=== PATIENT | female | born 1995 | race African-American/Black ===

== ENCOUNTER 2021-10-21 12:21 | Emergency (ER) | payer OTHER ==
[2021-10-21 13:15] LABS: #Eosinphils 0.2 10x3/uL (0.0-0.5); #Monocytes 0.3 10x3/uL (0.0-1.1); #Neutrophils 5.9 10x3/uL (1.5-8.4); %Basophils 0.4 % (0.0-2.0); %Eosinophils 2.1 % (0.0-6.0); %Lymphocytes 14.4 % (18.0-47.0); %Monocytes 4.4 % (0.0-10.0); %Neutrophils 78.4 % (40.0-75.0); Hemoglobin 9.7 g/dL (12.0-15.5); Mean Corpuscular HGB CONC 32.1 g/dL (32.0-36.0); Mean Corpuscular Hemoglobin 24.7 pg (27.0-33.0); Mean Corpuscular Volume 76.8 fl (81.6-98.3); Mean Platelet Volume 10.3 fl (7.4-10.4); Platelet Count 277 10x3/uL (150-450); Red Blood Cell (RBC) Count 3.93 10x6/uL (3.90-5.03); White Blood Cell (WBC) Count 7.6 10x3/uL (3.5-10.5)
[2021-10-21 13:25] LABS: ALT (SGPT) 9 U/L (8-55); AST (SGOT) 13 U/L (5-34); Albumin 4.1 g/dL (3.5-5.0); Alkaline Phosphatase 61 U/L (40-110); Anion Gap 12 mmol/L (10-20); BUN (Urea Nitrogen) 6 mg/dL (7.0-18.7); Bilirubin, Total 0.5 mg/dL (0.2-1.2); Calc. Creatinine Clearance 0 mL/min (70-130); Calcium 9.5 mg/dL (7.8-10.44); Carbon Dioxide 23 mmol/L (22-29); Chloride 104 mmol/L (98-107); Globulin 3.9 g/dL (2.4-3.5); Glucose 107 mg/dL (70-105); Sodium 135 mmol/L (136-145)
[2021-10-21 13:38] LABS: Bilirubin Neg (Negative); Blood, Urine Negative (Negative); Clarity Clear (Clear); Glucose, Urine (Dipstick) Normal (Negative); Ketone, Urine Negative (Negative); Leukocyte Negative (Negative); Nitrite Negative (Negative); Protein, Urine (Dipstick) Negative (Neg-Trace); Urobilinogen Normal mg/dL (Less than 2)
[2021-10-21] MEDS ORDERED: Ondansetron PF 4 MG/2 ML Vial ONE (14:13)
== END 2021-10-21 15:43 | disposition home or self-care (01) ==
LOC: CSHERS 12:21
DX: O21.0 Mild hyperemesis gravidarum (principal); O99.011 Anemia complicating pregnancy, first trimester; D64.9 Anemia, unspecified; Z3A.01 Less than 8 weeks gestation of pregnancy
CPT/HCPCS: 80053; 81003; 84702; 85025; 96361; 96374; J2405

== ENCOUNTER 2022-04-25 20:30 | Day surgery (SDC) | payer OTHER ==
[2022-04-25 21:20] VITALS: BMI 29.5
[2022-04-25] MEDS ORDERED: hydrALAZINE 20 MG/ML VIAL SLOW IVP PRN (22:59)
[2022-04-25] MEDS ORDERED: Methocarbamol 500 MG TAB PO PRN (23:08)
[2022-04-25] MEDS ORDERED: Acetaminophen 325 MG TAB PO PRN (23:12)
[2022-04-25] MEDS ORDERED: Azithromycin 250 MG TAB PO SCH (23:15)
[2022-04-25] MEDS ORDERED: cefTRIAXone\\ROCEPHIN 500 MG VIAL IM SCH (23:30)
[2022-04-25 23:40] LABS: Bilirubin Neg (Negative); Blood, Urine 150 (Negative); Clarity Slightly Cloudy (Clear); Glucose, Urine (Dipstick) Normal (Negative); Ketone, Urine Negative (Negative); Leukocyte Negative (Negative); Nitrite Negative (Negative); Protein, Urine (Dipstick) Negative (Neg-Trace)
[2022-04-25 23:54] LABS: RBC/HPF 21-50 HPF (0-3); Squamous Epithelial 0-3 HPF (0-3); WBC/HPF 0-3 HPF (0-3)
[2022-04-25 23:55] LABS: Bacteria/HPF None Seen HPF (None Seen)
[2022-04-26 00:03] LABS: Amphetamine Not Detected (NotDetected); Barbiturates Screen Not Detected (NotDetected); Benzodiazepine Screen Not Detected (NotDetected); Cocaine Metabolite Screen Not Detected (NotDetected); Methadone Not Detected (NotDetected); Methamphetamine Not Detected (NotDetected); Opiate Screen Detected (NotDetected); Oxycodone Screen Not Detected (NotDetected); Phencyclidine (PCP) Not Detected (NotDetected); THC/Cannabinoid Screen Not Detected (NotDetected); Tricyclic Screen Not Detected (NotDetected)
[2022-04-26] MEDS ORDERED: Lidocaine 1% (PF) 30 ML VIAL ONE (00:49)
[2022-04-26 01:23] LABS: Hemoglobin 8.5 g/dL (12.0-15.5); Mean Corpuscular HGB CONC 31.6 g/dL (32.0-36.0); Mean Corpuscular Hemoglobin 26.3 pg (27.0-33.0); Mean Corpuscular Volume 83.3 fl (81.6-98.3); Mean Platelet Volume 10.8 fl (7.4-10.4); Platelet Count 213 10x3/uL (150-450); RBC Distribution Width 13.9 % (11.5-14.5); Red Blood Cell (RBC) Count 3.23 10x6/uL (3.90-5.03); White Blood Cell (WBC) Count 8.6 10x3/uL (3.5-10.5)
[2022-04-26 01:36] LABS: ALT (SGPT) 7 U/L (8-55); AST (SGOT) 10 U/L (5-34); Albumin 3.3 g/dL (3.5-5.0); Alkaline Phosphatase 123 U/L (40-110); Anion Gap 12 mmol/L (10-20); BUN (Urea Nitrogen) 10 mg/dL (7.0-18.7); Bilirubin, Total 0.3 mg/dL (0.2-1.2); Calc. Creatinine Clearance 188 mL/min (70-130); Calcium 8.8 mg/dL (7.8-10.44); Carbon Dioxide 20 mmol/L (22-29); Chloride 108 mmol/L (98-107); Estimated GFR 125; Globulin 3.4 g/dL (2.4-3.5); Glucose 89 mg/dL (70-105); Potassium 3.4 mmol/L (3.5-5.1); Protein, Total 6.7 g/dL (6.0-8.3); Sodium 137 mmol/L (136-145)
[2022-04-26 02:02] LABS: HBSAg Index 0.12 S/CO (0-0.99); HIV (1/2) Antibody/Antigen Non-Reactive (NonReactive); HIV 1/2 INDEX 0.05 S/CO (<1.00); Hep B Surf Ag Non-Reactive S/CO (NonReactive)
[2022-04-26 02:58] LABS: Syphilis Antibody Index 23.98 S/CO (<1.00 Non-Reactive)
[2022-04-26 03:12] LABS: Syphilis Antibody REACTIVE (Nonreactive)
[2022-04-26] MEDS ORDERED: Bicillin LA 2.4 MILL.UNITS/4 ML SYRINGE IM SCH (04:30)
[2022-04-26] MEDS ORDERED: Acyclovir 400 mg Tablet PO SCH ×2 (05:00→09:00)
[2022-04-26] MEDS ORDERED: Acetaminophen 500 MG TAB PO SCH (08:30)
[2022-04-26] MEDS ORDERED: Prenatal Vitamin 1 TAB PO SCH (09:00)
[2022-04-26] MEDS ORDERED: Iron Sucrose Complex 500 MG in Sodium Chloride 0.9% 250 ML 250 ML IVPB SCH (09:00)
[2022-04-26] MEDS ORDERED: diphenhydrAMINE 25 MG CAP ONE (10:01)
[2022-04-26] MEDS ORDERED: Acetaminophen 500 MG TAB ONE (10:01)
[2022-04-26 21:43] LABS: Chlamydia by PCR Not Detected (NotDetected); GC by PCR Not Detected (NotDetected)
== END 2022-04-26 09:52 | disposition home or self-care (01) ==
LOC: CSHLD/OP 20:30
PROVIDERS: ATTEND Student in an Organized Health Care Education/Training Program
DX: O99.891 Other specified diseases and conditions complicating pregnancy (principal); M54.30 Sciatica, unspecified side; R10.2 Pelvic and perineal pain; O99.013 Anemia complicating pregnancy, third trimester; D64.9 Anemia, unspecified; O98.113 Syphilis complicating pregnancy, third trimester; A52.8 Late syphilis, latent; O99.323 Drug use complicating pregnancy, third trimester; F11.90 Opioid use, unspecified, uncomplicated; Z3A.36 36 weeks gestation of pregnancy; Z79.899 Other long term (current) drug therapy
CPT/HCPCS: 36415; 76805; 76819; 80053; 80306; 81001; 85027; 86593; 86762; 86780; 86850; 86900; 86901; 87340; 87389; 87491; 87591; 87661; J0561; J0696; J1756; J2001; J7050

== ENCOUNTER 2022-05-06 09:00 | Inpatient (IN) | payer OTHER ==
[2022-05-06 10:45] VITALS: BMI 29.5
[2022-05-06] MEDS ORDERED: hydrALAZINE 20 MG/ML VIAL SLOW IVP PRN ×2 (10:56→18:17)
[2022-05-06] MEDS ORDERED: Bicitra 30 ML UDCUP PO PRN (10:56)
[2022-05-06] MEDS ORDERED: Ondansetron PF 4 MG/2 ML Vial IVP PRN ×3 (10:56→18:17)
[2022-05-06] MEDS ORDERED: Promethazine HCl 25 MG/ML VIAL IM PRN ×3 (10:56→18:17)
[2022-05-06] MEDS ORDERED: Famotidine/PF 20 mg/2ml Vial SLOW IVP PRN (10:56)
[2022-05-06] MEDS ORDERED: CEFAZOLIN 2 GM in Sodium Chloride 0.9% 100 ML IVPB SCH (11:00)
[2022-05-06] MEDS ORDERED: Lactated Ringer's 1,000 ML IV SCH (11:00)
[2022-05-06 11:50] LABS: Hemoglobin 9.5 g/dL (12.0-15.5); Mean Corpuscular HGB CONC 31.9 g/dL (32.0-36.0); Mean Corpuscular Volume 84.7 fl (81.6-98.3); Mean Platelet Volume 11.4 fl (7.4-10.4); Platelet Count 214 10x3/uL (150-450); RBC Distribution Width 14.9 % (11.5-14.5); Red Blood Cell (RBC) Count 3.52 10x6/uL (3.90-5.03); White Blood Cell (WBC) Count 7.1 10x3/uL (3.5-10.5)
[2022-05-06] MEDS ORDERED: Fentanyl 100 MCG/2 ML VIAL ONE (11:57)
[2022-05-06] MEDS ORDERED: Morphine PF 10 MG/10 ML VIAL ONE (11:57)
[2022-05-06] MEDS ORDERED: Bicillin LA 2.4 MILL.UNITS/4 ML SYRINGE IM SCH ×2 (12:00→15:00)
[2022-05-06] MEDS ORDERED: Dexamethasone 4 mg/ml Vial ONE (12:01)
[2022-05-06] MEDS ORDERED: Ondansetron PF 4 MG/2 ML Vial ONE (12:01)
[2022-05-06] MEDS ORDERED: Phenylephrine 40 MG/NS 250 ML 250 ML ONE (12:01)
[2022-05-06] MEDS ORDERED: Oxytocin 10 UNITS/ML VIAL ONE (12:02)
[2022-05-06] MEDS ORDERED: Ketorolac Tromethamine 30 MG/ML VIAL ONE (12:03)
[2022-05-06] MEDS ORDERED: Misoprostol 200 MCG TAB ONE ×2 (12:14→14:31)
[2022-05-06] MEDS ORDERED: Methylergonovine 0.2 MG/ML VIAL ONE (12:14)
[2022-05-06] MEDS ORDERED: Carboprost 250 MCG/ML AMP ONE (12:14)
[2022-05-06 12:16] LABS: HBSAg Index 0.13 S/CO (0-0.99); HIV (1/2) Antibody/Antigen Non-Reactive (NonReactive); HIV 1/2 INDEX 0.15 S/CO (<1.00); Hep B Surf Ag Non-Reactive S/CO (NonReactive)
[2022-05-06 12:33] LABS: SARS-CoV-2 NAA Rapid Test Not Detected (NotDetected)
[2022-05-06] MEDS ORDERED: Tranexamic Acid 1,000 MG/10 ML VIAL ONE (12:46)
[2022-05-06] MEDS ORDERED: Midazolam HCl 2 mg/2 ml Vial ONE (13:07)
[2022-05-06 13:14] LABS: Amphetamine Not Detected (NotDetected); Barbiturates Screen Not Detected (NotDetected); Benzodiazepine Screen Not Detected (NotDetected); Cocaine Metabolite Screen Not Detected (NotDetected); Methadone Not Detected (NotDetected); Methamphetamine Not Detected (NotDetected); Opiate Screen Not Detected (NotDetected); Oxycodone Screen Not Detected (NotDetected); Phencyclidine (PCP) Not Detected (NotDetected); THC/Cannabinoid Screen Not Detected (NotDetected); Tricyclic Screen Not Detected (NotDetected)
[2022-05-06] MEDS ORDERED: Erythromycin Base 0.5% Oint 1 GM TUBE ONE (13:15)
[2022-05-06] MEDS ORDERED: Phytonadione Neonatal 1 MG/0.5 ML AMP ONE (13:15)
[2022-05-06] MEDS ORDERED: Promethazine HCl 25 MG SUPP PR PRN (13:53)
[2022-05-06] MEDS ORDERED: Ondansetron HCl/PF 4 MG/2 ML Vial IVP PRN (13:53)
[2022-05-06] MEDS ORDERED: Fentanyl 100 MCG/2 ML VIAL SLOW IVP PRN (13:53)
[2022-05-06] MEDS ORDERED: Naloxone HCl 0.4 mg/ml Vial IVP PRN ×2 (13:53)
[2022-05-06] MEDS ORDERED: Meperidine HCl/PF 25 MG/ML VIAL SLOW IVP PRN (13:53)
[2022-05-06] MEDS ORDERED: Naloxone HCl 0.4 mg/ml Vial IV PRN (13:53)
[2022-05-06] MEDS ORDERED: diphenhydrAMINE 50 MG/ML VIAL IVP PRN (13:53)
[2022-05-06] MEDS ORDERED: Moisturizing Cream (Eucerin) 113 GM JAR TOP PRN (13:53)
[2022-05-06] MEDS ORDERED: Communication Order-Pharmacy FS SCH (14:00)
[2022-05-06 14:29] LABS: RapidComm Collect By CBRN
[2022-05-06 14:31] LABS: RapidComm Collect By CBRN; pH (Cord, venous) 6.887 (7.250-7.350)
[2022-05-06] MEDS ORDERED: Misoprostol 200 MCG TAB PR SCH (14:45)
[2022-05-06] MEDS ORDERED: Meperidine HCl/PF 25 MG/ML VIAL ONE (15:13)
[2022-05-06] MEDS ORDERED: NS w/ Oxytocin 30 units 500 ML IV SCH (18:17)
[2022-05-06] MEDS ORDERED: Methylergonovine 0.2 MG/ML VIAL IM PRN (18:17)
[2022-05-06] MEDS ORDERED: Boostrix 0.5 ML (Tdap) VIAL (>/=7 yrs of age) IM ONE (18:17)
[2022-05-06] MEDS ORDERED: Misoprostol 200 MCG TAB PR PRN (18:17)
[2022-05-06] MEDS ORDERED: Bisacodyl 10 MG SUPP PR PRN (18:17)
[2022-05-06] MEDS ORDERED: diphenhydrAMINE 25 MG CAP PO PRN (18:17)
[2022-05-06 18:50] LABS: Syphilis Antibody Index 24.36 S/CO (<1.00 Non-Reactive)
[2022-05-06 19:00] LABS: Syphilis Antibody REACTIVE (Nonreactive)
[2022-05-06] MEDS: Ferrous Sulfate 325 MG TAB PO SCH (20:04)
[2022-05-06] MEDS: Ketorolac Tromethamine 30 MG/ML VIAL IVP SCH (20:04)
[2022-05-06] MEDS: Docusate 100 MG CAP PO SCH (20:05)
[2022-05-07] MEDS: Ketorolac Tromethamine 30 MG/ML VIAL IVP SCH ×3 (01:56→14:15)
[2022-05-07] MEDS: HYDROcodone/Acetaminophen 5/325 mg Tablet PO PRN ×5 (02:02→23:09)
[2022-05-07] MEDS: Ferrous Sulfate 325 MG TAB PO SCH ×2 (07:47→21:21)
[2022-05-07] MEDS: Docusate 100 MG CAP PO SCH ×2 (07:47→21:21)
[2022-05-07] MEDS: Prenatal Vitamin 1 TAB PO SCH (07:47)
[2022-05-07] MEDS: Simethicone Chewable 80 MG TAB PO PRN ×3 (07:52→21:21)
[2022-05-07 08:01] LABS: Hemoglobin 5.7 g/dL (12.0-15.5); Mean Corpuscular HGB CONC 32.2 g/dL (32.0-36.0); Mean Corpuscular Hemoglobin 27.1 pg (27.0-33.0); Mean Corpuscular Volume 84.3 fl (81.6-98.3); Mean Platelet Volume 10.8 fl (7.4-10.4); Platelet Count 157 10x3/uL (150-450); RBC Distribution Width 14.6 % (11.5-14.5); White Blood Cell (WBC) Count 9.1 10x3/uL (3.5-10.5)
[2022-05-07] MEDS: Ibuprofen 800 MG TAB PO SCH (21:22)
[2022-05-07 22:39] LABS: Hemoglobin 7.8 g/dL (12.0-15.5)
[2022-05-08] MEDS: HYDROcodone/Acetaminophen 5/325 mg Tablet PO PRN ×4 (04:14→20:16)
[2022-05-08] MEDS: Simethicone Chewable 80 MG TAB PO PRN ×4 (04:14→21:38)
[2022-05-08] MEDS: Ibuprofen 800 MG TAB PO SCH ×3 (05:53→21:38)
[2022-05-08] MEDS: Ferrous Sulfate 325 MG TAB PO SCH ×2 (07:42→21:38)
[2022-05-08] MEDS: Prenatal Vitamin 1 TAB PO SCH (07:42)
[2022-05-08] MEDS: Docusate 100 MG CAP PO SCH ×2 (07:42→21:38)
[2022-05-08] MEDS ORDERED: Bicillin LA 2.4 MILL.UNITS/4 ML SYRINGE IM SCH (17:30)
[2022-05-09] MEDS: Ibuprofen 800 MG TAB PO SCH (05:23)
[2022-05-09 07:32] VITALS: BP 107/62; TEMP 98.6
[2022-05-09] MEDS ORDERED: Bicillin LA 2.4 MILL.UNITS/4 ML SYRINGE IM SCH (08:00)
[2022-05-09] MEDS: Docusate 100 MG CAP PO SCH (09:42)
[2022-05-09] MEDS: Ferrous Sulfate 325 MG TAB PO SCH (09:42)
[2022-05-09] MEDS: Prenatal Vitamin 1 TAB PO SCH (09:42)
[2022-05-09] MEDS ORDERED: Acetaminophen 325 MG TAB PO SCH (10:00)
[2022-05-09] MEDS ORDERED: HYDROcodone/Acetaminophen 5/325 mg Tablet PO PRN (10:01)
[2022-05-09] MEDS ORDERED: Ibuprofen 800 MG TAB PO SCH (12:00)
== END 2022-05-09 13:15 | disposition home or self-care (01) | DRG 787 ==
LOC: CSHLD 10:15 → CSHPP 18:30
PROVIDERS: ADMIT Obstetrics & Gynecology; ATTEND Obstetrics & Gynecology
PROC: 10D00Z1 Extraction of Products of Conception, Low, Open Approach (ICD-10-PCS; principal; 2022-05-06)
PROC: 30233N1 Transfusion of Nonautologous Red Blood Cells into Peripheral Vein, Percutaneous Approach (ICD-10-PCS; 2022-05-07)
DX: O34.211 Maternal care for low transverse scar from previous cesarean delivery (principal); D62 Acute posthemorrhagic anemia; O72.2 Delayed and secondary postpartum hemorrhage; O98.12 Syphilis complicating childbirth; O98.52 Other viral diseases complicating childbirth; O99.324 Drug use complicating childbirth; Z37.0 Single live birth; Z20.822 Contact with and (suspected) exposure to COVID-19; Z3A.38 38 weeks gestation of pregnancy; B00.9 Herpesviral infection, unspecified; O99.02 Anemia complicating childbirth; Z90.49 Acquired absence of other specified parts of digestive tract; Z79.899 Other long term (current) drug therapy; F11.90 Opioid use, unspecified, uncomplicated; O69.81X0 Labor and delivery complicated by cord around neck, without compression, not applicable or unspecified; O99.62 Diseases of the digestive system complicating childbirth; K66.0 Peritoneal adhesions (postprocedural) (postinfection); R31.9 Hematuria, unspecified; O99.893 Other specified diseases and conditions complicating puerperium
CPT/HCPCS: 36415; 36430; 51600; 51702; 74430; 80306; 82805; 85027; 86593; 86762; 86780; 86850; 86900; 86901; 87340; 87389; 88307; J0561; J1100; J1885; J2175; J2250; J2274; J2405; J2590; J3010; J3490; J7120; P9016; S0028; U0002

== ENCOUNTER 2023-04-13 18:05 | Emergency (ER) | payer OTHER, SELFPAY ==
[2023-04-13] MEDS ORDERED: predniSONE 20 MG TAB ONE (19:26)
[2023-04-13 19:52] LABS: Pregnancy Test - Urine (BHCG) Negative (Negative)
[2023-04-13 19:52] LABS: #Basophils 0.1 10x3/uL (0.0-0.2); #Eosinphils 0.2 10x3/uL (0.0-0.5); #Monocytes 0.4 10x3/uL (0.0-1.1); #Neutrophils 5.9 10x3/uL (1.5-8.4); %Basophils 0.7 % (0.0-2.0); %Eosinophils 2.5 % (0.0-6.0); %Lymphocytes 22.3 % (18.0-47.0); %Monocytes 4.3 % (0.0-10.0); %Neutrophils 70.1 % (40.0-75.0); Hematocrit 34.2 % (34.9-44.5); Hemoglobin 10.3 g/dL (12.0-15.5); Mean Corpuscular HGB CONC 30.1 g/dL (32.0-36.0); Mean Corpuscular Hemoglobin 24.8 pg (27.0-33.0); Mean Corpuscular Volume 82.4 fl (81.6-98.3); Mean Platelet Volume 10.1 fl (7.4-10.4); Platelet Count 306 10x3/uL (150-450); RBC Distribution Width 13.2 % (11.5-14.5); Red Blood Cell (RBC) Count 4.15 10x6/uL (3.90-5.03); White Blood Cell (WBC) Count 8.4 10x3/uL (3.5-10.5)
[2023-04-13 19:55] LABS: Amphetamine Not Detected (NotDetected); Barbiturates Screen Not Detected (NotDetected); Benzodiazepine Screen Not Detected (NotDetected); Cocaine Metabolite Screen Not Detected (NotDetected); Methadone Not Detected (NotDetected); Methamphetamine Not Detected (NotDetected); Opiate Screen Not Detected (NotDetected); Oxycodone Screen Not Detected (NotDetected); Phencyclidine (PCP) Not Detected (NotDetected); THC/Cannabinoid Screen Not Detected (NotDetected); Tricyclic Screen Not Detected (NotDetected)
[2023-04-13 19:56] LABS: Bilirubin Neg (Negative); Blood, Urine 10 (Negative); Clarity Clear (Clear); Glucose, Urine (Dipstick) Normal (Negative); Ketone, Urine Negative (Negative); Leukocyte Negative (Negative); Nitrite Negative (Negative); Protein, Urine (Dipstick) Negative (Neg-Trace); Urobilinogen Normal mg/dL (Less than 2)
[2023-04-13 19:57] LABS: Pregu Control Background? CLEAR/WHITE (CLR/WHITE); Pregu Control Bar Appear? YES (CONTROL BAR)
[2023-04-13 20:06] LABS: Acetaminophen Less than 10 mcg/mL (10.0-30.0); Alcohol Less than 10.0 mg/dL (Less than 10); Lipase 19 U/L (8-78); Magnesium 1.9 mg/dL (1.6-2.6); Salicylate Less than 8.0 mg/dL (15.0-30.0)
[2023-04-13 20:08] LABS: ALT (SGPT) 16 U/L (8-55); AST (SGOT) 16 U/L (5-34); Albumin 4.1 g/dL (3.5-5.0); Alkaline Phosphatase 65 U/L (40-110); Anion Gap 15 mmol/L (10-20); BUN (Urea Nitrogen) 13 mg/dL (7.0-18.7); Bilirubin, Total 0.2 mg/dL (0.2-1.2); CK (CPK) 142 U/L (29-168); Calc. Creatinine Clearance 0 mL/min (70-130); Calcium 9.6 mg/dL (7.8-10.44); Carbon Dioxide 25 mmol/L (22-29); Chloride 104 mmol/L (98-107); Estimated GFR 90; Glucose 92 mg/dL (70-105); Protein, Total 8.1 g/dL (6.0-8.3); Sodium 140 mmol/L (136-145)
[2023-04-13 20:09] LABS: CAUTI Indications for Culture Dysuria,urgency,freq; RBC/HPF 0-3 HPF (0-3); Squamous Epithelial 0-3 HPF (0-3); WBC/HPF None Seen HPF (0-3)
[2023-04-13 20:10] LABS: Bacteria/HPF None Seen HPF (None Seen)
[2023-04-13 20:11] LABS: Urine Culture Reflex No No
== END 2023-04-13 20:32 | disposition home or self-care (01) ==
LOC: CSHERS 18:05
DX: B34.9 Viral infection, unspecified (principal)
CPT/HCPCS: 36415; 80053; 80306; 80307; 81001; 81025; 82550; 83605; 83690; 83735; 83880; 85025; 86140; 93005; J7512